=== PATIENT | female | born 1985 | race Caucasian/White ===

== ENCOUNTER 2021-08-15 14:18 | Emergency (ER) | payer OTHER ==
[2021-08-15 14:30] VITALS: BP 135/76
--- NOTE | 2021-08-15 14:33 | ED Physician Documentation ---
History of Present Illness - Stated complaint Stated Complaint: BODY PX - Chief complaint Chief Complaint: General - History obtained from History obtained from: Patient - History of Present Illness Timing: Chronic Quality: diffuse myofascial pains due to fibromas(?). On chronic pain meds and is awaiting surgical treatment. Moved here recently from [place]. Associated symptoms: She is trying to get PMD established through her new [place] State insurance. Review of Systems Constitutional: denies: Fever, Chills Nose: denies: Rhinorrhea / runny nose, Congestion Throat: denies: Sore throat Respiratory: denies: Cough PD PAST MEDICAL HISTORY - Past Medical History Musculoskeletal: Other (fibromas(?)) - Present Medications Home Medications: Ambulatory Orders Medication Instructions Recorded Confirmed Oxycodone HCl 15 mg PO Q6H PRN #25 tablet 08/15/21 - Allergies Allergies/Adverse Reactions: Allergies Allergy/AdvReac Type Severity Reaction Status Date / Time No Known Drug Allergies Allergy Verified 08/15/21 14:30 PD ED PE NORMAL - Vitals Vital signs reviewed: Yes - General General: Alert and oriented X 3, No acute distress, Well developed/nourished - Derm Derm: Normal color, Warm and dry Results - Vitals Vitals: Vital Signs - 24 hr 08/15/21 14:24 Temperature 36.6 C Heart Rate 94 Respiratory 16 Rate Blood Pressure 135/76 H O2 Saturation 99 Oxygen O2 Source Room air PD MEDICAL DECISION MAKING - ED course Complexity details: considered differential (She did not think she would be staying [place]. Her primary care and pain clinic in [place] was unable to prescribe refills for her. They suggested going to an ER. She is having persistent chronic myofascial pains.), d/w patient ED course: With [place] regulations, I did provide a short course prescription for pain medications. She will need to follow-up with the primary care for further medications to treat her pains. She was advised we would not be able to do refills subsequently through the ER. Departure - Departure Disposition: 01 Home, Self Care Clinical Impression: Muscle pain, myofascial Condition: Stable Record reviewed to determine appropriate education?: Yes Prescriptions: Oxycodone HCl 15 mg PO Q6H PRN #25 tablet PRN Reason: Pain Comments: [facility] [phone]. Call the providers listed on your insurance list. Dr. Perez as not been at this hospital for several years. We do not have the Jenny provider here at our facility. I see it listed potentially in [facility] which is not on [facility]. Look for some of the other providers on that list and try to obtain a primary care. You can also call the [facility] pain clinic and see what their timing is for new patients. You will also need to see what you can do working through your current provider back in [place] though certainly limited because of differing states etc. Discharge Date/Time: 08/15/21 15:09
== END 2021-08-15 15:09 | disposition home or self-care (01) ==
LOC: ED 14:18
DX: M79.18 Myalgia, other site (principal); G89.29 Other chronic pain
CPT/HCPCS: 99281; 99282

== ENCOUNTER 2022-01-08 02:16 | Emergency (ER) | payer SELFPAY ==
--- NOTE | 2022-01-08 02:19 | ED Physician Documentation ---
PD HPI LOWER EXT INJURY - Stated complaint Stated Complaint: L ANKLE PX - History obtained from History obtained from: Patient - History of Present Illness PD HPI LOW EXT INJURY LOCATION: Left, Ankle Type of injury: Twist Where injury occurred: Home Timing - onset: Enter time (16:00) Timing - details: Abrupt onset Pain level now: 2 Improved by: Rest Worsened by: Moving, Palpating Associated symptoms: Swelling. No: Weakness, Numbness - Additional information Additional information: At approximately 4 PM yesterday, patient was walking dogs when her left foot went into a hole in the ground, causing her left ankle to twist. She is able to partially weight-bear. She presents at this time due to pain and swelling steadily worsening and she is concerned it might be broken Review of Systems Musculoskeletal: reports: Joint pain, Joint swelling, Pain with weight bearing Neurologic: denies: Focal weakness, Numbness PD PAST MEDICAL HISTORY - Past Medical History Musculoskeletal: Other (fibromas(?)) - Present Medications Home Medications: Ambulatory Orders Medication Instructions Recorded Confirmed Oxycodone HCl 15 mg PO Q6H PRN #25 tablet 08/15/21 01/08/22 Atenolol [Tenormin] 500 mg PO BID 01/08/22 01/08/22 Gabapentin [Neurontin] 600 mg PO QID 01/08/22 01/08/22 oxyCODONE ER [OxyCONTIN] 10 mg PO BID 01/08/22 01/08/22 - Allergies Allergies/Adverse Reactions: Allergies Allergy/AdvReac Type Severity Reaction Status Date / Time No Known Drug Allergies Allergy Verified 01/08/22 02:24 PD ED PE NORMAL - Vitals Vital signs reviewed: Yes - General General: Alert and oriented X 3, No acute distress (at rest although obvious discomfort with palpation or movement involving left ankle), Well developed/nourished PD ED PE EXPANDED - Extremities Extremities: Tenderness (predominantly lateral aspect), Limited ROM, Swelling (predominantly lateral aspect), Left ankle, Pedal Pulses Present Results - Vitals Vitals: Oxygen O2 Source Room air - Rads (name of study) left ankle xrays Radiology: Prelim report reviewed, See rad report PD MEDICAL DECISION MAKING - ED course Complexity details: reviewed results, re-evaluated patient, considered differential, d/w patient ED course: Significant swelling, moderate TTP left ankle (lateral aspect) on exam, no fracture on xrays. Patient has her own LAURI wrap. I recommended crutches and air- cast splint, both of which she declines, and she wants to use her own LAURI wrap. She says she is "between insurances" (per patient), and wants to avoid any tests or treatment that isn't necessary. As there is no fracture on xrays, it is reasonable to forego splint and crutches. She says she will consider ordering the air-cast splint from [facility] and will borrow a friend's crutches. She declines pain medication, will use OTC medication. Work excuse provided. Departure - Departure Disposition: Home, Self Care Clinical Impression: Left ankle sprain Qualifiers: Encounter type: initial encounter Involved ligament of ankle: unspecified ligament Qualified Code(s): S93.402A - Sprain of unspecified ligament of left ankle, initial encounter Condition: Good Instructions: ED Sprain Ankle Follow-Up: Ez Storey MD [Provider Admit Priv/Credential] - Comments: The xrays do not show any broken or dislocated bones. Soft tissue injuries such as ankle sprains do not show on xrays. Rest for the next few days, minimizing weight-bearing and keeping the ankle elevated above the level of the heart when at home resting. Follow up with your primary care provider in 5-7 days for reevaluation of the injury. You can take tylenol or ibuprofen for pain as per label instructions Forms: Activity restrictions Discharge Date/Time: 01/08/22 03:28
[2022-01-08 03:25] VITALS: BP 110/60
--- NOTE | 2022-01-08 08:24 | XRAY Report ---
PROCEDURE: Ankle 3 View LT INDICATIONS: left ankle injury; swelling, tenderness TECHNIQUE: 3 views of the ankle were acquired. COMPARISON: None. FINDINGS: Bones: No fractures or dislocations. Ankle mortise is normally aligned. No suspicious bony lesions . Soft tissues: Swelling at the lateral malleolus. No tibiotalar joint effusion. Achilles tendon appe ars normal. IMPRESSION: No acute osseous abnormality. Swelling at the lateral malleolus. This report is concordant with the overnight preliminary interpretation. Reviewed by: Vinny Ellison MD on 01/08/2022 8:23 AM PST Approved by: Vinny Ellison MD on 01/08/2022 8:23 AM PST Station ID: [id number]
== END 2022-01-08 03:28 | disposition home or self-care (01) ==
LOC: ED 02:16
DX: S82.402A Unspecified fracture of shaft of left fibula, initial encounter for closed fracture (principal); X50.1XXA Overexertion from prolonged static or awkward postures, initial encounter; Y93.K1 Activity, walking an animal
CPT/HCPCS: 99282; 99283

== ENCOUNTER 2022-11-26 09:38 | Outpatient (CLI) | payer MEDICAID ==
[2022-11-26 11:49] LABS: ESTIMATED AVERAGE GLUCOSE 74 mg/dL (70-100); HEMOGLOBIN A1c% 4.2 % (4.27-6.07)
[2022-11-26 12:12] LABS: BASOPHILS % (AUTO) 0.4 %; EOSINOPHILS # (AUTO) 0.1 10^3/uL (0.0-0.7); EOSINOPHILS % (AUTO) 2.5 %; HCT - HEMATOCRIT 39.8 % (37.0-47.0); HGB - HEMOGLOBIN 12.5 g/dL (12.0-16.0); LYMPHOCYTES # (AUTO) 1.8 10^3/uL (1.5-3.5); LYMPHOCYTES % (AUTO) 34.2 %; MEAN CORPUSCULAR HGB CONC 31.4 g/dL (32.0-36.0); MEAN CORPUSCULAR VOLUME 95.7 fL (81.0-99.0); MEAN PLATELET VOLUME 11.7 fL (7.9-10.8); MONOCYTES # (AUTO) 0.4 10^3/uL (0.0-1.0); MONOCYTES % (AUTO) 7.9 %; NEUTROPHILS # (AUTO) 2.9 10^3/uL (1.5-6.6); NEUTROPHILS % (AUTO) 54.8 %; PLT - PLATELET COUNT 294 10^3/uL (130-450); RED BLOOD COUNT 4.16 10^6/uL (4.20-5.40); RED CELL DISTRIBUTION WIDTH 13.2 % (12.0-15.0); WHITE BLOOD COUNT 5.3 x10^3/uL (4.8-10.8)
[2022-11-26 12:34] LABS: HCG,QUALITATIVE BLOOD NEGATIVE
[2022-11-26 12:41] LABS: THYROID STIMULATING HORMONE 2.53 uIU/mL (0.34-5.60)
[2022-11-26 12:47] LABS: FERRITIN 64.4 ng/mL (11.0-306.8); PROLACTIN 22.84 ng/mL
== END 2022-11-26 09:39 | disposition home or self-care (01) ==
LOC: LAB.N 09:38
PROVIDERS: ATTEND Nurse Practitioner Family
DX: D64.9 Anemia, unspecified (principal); N92.6 Irregular menstruation, unspecified; E66.9 Obesity, unspecified; R53.83 Other fatigue
CPT/HCPCS: 36415; 82670; 82728; 83001; 83036; 83540; 84146; 84403; 84443; 84466; 84703; 85025

== ENCOUNTER 2023-06-10 21:43 | Emergency (ER) | payer MEDICAID ==
[2023-06-10 21:59] VITALS: BP 119/74; O2SAT 100
--- NOTE | 2023-06-10 22:53 | ED Physician Documentation ---
History of Present Illness - Stated complaint Stated Complaint: BILAT HIP PX - Chief complaint Chief Complaint: Ext Problem - History obtained from History obtained from: Patient - Additonal information Additional information: The pt comes to the ED with CC of bilateral hip swelling after a hike a few days ago. She states she was wearing a backpack with a hip belt, and she felt that it was pulling on her scars from prior surgery. Her hip joints hurt for a couple of days after the hike, but that has resolved. She states that now, her main concern is an area of "puffiness" just superior to each hip laterally, between the hip and her scar. She states she is supposed to go on a trip soon, and wants to make sure this is nothing serious. No erythema, fevers, chills, or pain with any position. No other complaints at this time. PD PAST MEDICAL HISTORY - Past Medical History Past Medical History: Yes Cardiovascular: Hypertension Respiratory: None Neuro: None Endocrine/Autoimmune: None GI: None [employer]: None : None HEENT: None Psych: None Musculoskeletal: None, Other Derm: None - Past Surgical History Past Surgical History: Yes General: Other - Present Medications Home Medications: Ambulatory Orders Medication Instructions Recorded Confirmed Oxycodone HCl 15 mg PO Q6H PRN #25 tablet 08/15/21 01/08/22 Atenolol [Tenormin] 500 mg PO BID 01/08/22 01/08/22 Gabapentin [Neurontin] 600 mg PO QID 01/08/22 01/08/22 - Allergies Allergies/Adverse Reactions: Allergies Allergy/AdvReac Type Severity Reaction Status Date / Time No Known Drug Allergies Allergy Verified 06/10/23 21:59 - Social History Does the pt smoke?: No Smoking Status: Never smoker Does the pt drink ETOH?: No Does the pt have substance abuse?: No - Immunizations Immunizations are current?: Yes - POLST Patient has POLST: No PD ED PE NORMAL - Vitals Vital signs reviewed: Yes - General General: Alert and oriented X 3, No acute distress - HEENT HEENT: Atraumatic, Moist mucous membranes - Neck Neck: Supple, no meningeal sign - Cardiac Cardiac: Strong equal pulses - Respiratory Respiratory: No respiratory distress - Abdomen Abdomen: Soft, Non tender, Non distended, Other (Low abdominal surgical scar running horizontally and wrapping laterally on both sides, superior to each hip) - Derm Derm: Normal color, Warm and dry, No rash, Other (Nonpitting, well-demarcated edema just superior to each hip, about 5 cm diameter. No induration, fluctuance, or erythema. No mass.) - Extremities Extremities: No deformity, Normal ROM s pain, No edema - Neuro Neuro: Alert and oriented X 3 - Psych Psych: Normal mood, Normal affect Results - Vitals Vitals: Oxygen O2 Source Room air PD Medical Decision Making - ED course Complexity details: considered differential, d/w patient ED course: I d/w pt that I do not know why she has areas of edema above her hips. There is no indication of infection, and her hip pain has resolved. There is no tenderness over the trochanteric bursae, and the edema is definitely superior to the hips. Being that it is just inferior to the scars, it is possible that while the pt was wearing her backpack, it caused traction on the scar tissue, resulting in soft tissue trauma. In the absence of contusion, though, it is hard to say. The pt has no findings to indicate DVT, and the areas are very well-demarcated, with no edema outside the noted 5 cm diameter areas. Her abdominal exam is benign, and she has no abdominal or systemic complaints. At this point, there is no work-up that will be helpful, and the pt is stable for d/c. I have d/w her that I suspect this will just blow over on its own, w hatever has caused it. Departure - Departure Disposition: 01 Home, Self Care Clinical Impression: Soft tissue swelling Condition: Stable Instructions: ED Edema Legs Bilateral Comments: Your areas of swelling are not really over your bursae or the actual hip joints themselves and your it joint pain has gone away. Patient of infection and at this point, no evidence of an emergent condition. The swollen areas feel like puffy tissue but they do not feel like fluid collections within the tissue. You can wear your lipedema pants to help redistribute some of the swelling. You may also take ibuprofen as needed. The swelling is expected to resolve on its own in the coming days to next week or so. Please follow-up with your primary doctor as needed. Forms: PCP List Discharge Date/Time: 06/10/23 23:00
== END 2023-06-10 23:00 | disposition home or self-care (01) ==
LOC: ED 21:43
DX: M79.9 Soft tissue disorder, unspecified (principal); M25.551 Pain in right hip; M25.552 Pain in left hip
CPT/HCPCS: 99282; 99283

== ENCOUNTER 2023-09-24 08:00 | Outpatient (CLI) | payer MEDICAID ==
[2023-09-24 20:52] LABS: BASOPHILS % (AUTO) 0.3 %; EOSINOPHILS # (AUTO) 0.1 10^3/uL (0.0-0.7); EOSINOPHILS % (AUTO) 1.5 %; HCT - HEMATOCRIT 36.5 % (37.0-47.0); HGB - HEMOGLOBIN 11.8 g/dL (12.0-16.0); LYMPHOCYTES # (AUTO) 2.1 10^3/uL (1.5-3.5); LYMPHOCYTES % (AUTO) 34.4 %; MEAN CORPUSCULAR HEMOGLOBIN 30.6 pg (27.0-31.0); MEAN CORPUSCULAR HGB CONC 32.3 g/dL (32.0-36.0); MEAN CORPUSCULAR VOLUME 94.6 fL (81.0-99.0); MEAN PLATELET VOLUME 12.2 fL (7.9-10.8); MONOCYTES # (AUTO) 0.4 10^3/uL (0.0-1.0); MONOCYTES % (AUTO) 5.7 %; NEUTROPHILS # (AUTO) 3.6 10^3/uL (1.5-6.6); NEUTROPHILS % (AUTO) 57.9 %; PLT - PLATELET COUNT 287 10^3/uL (130-450); RED BLOOD COUNT 3.86 10^6/uL (4.20-5.40); RED CELL DISTRIBUTION WIDTH 12.3 % (12.0-15.0); WHITE BLOOD COUNT 6.2 x10^3/uL (4.8-10.8)
[2023-09-24 21:05] LABS: ALBUMIN/GLOBULIN RATIO 1.3 (1.0-2.2); BILIRUBIN,TOTAL 0.7 mg/dL (0.2-1.0); CALCIUM 9.1 mg/dL (8.5-10.3); CREATININE 0.7 mg/dL (0.6-1.3); POTASSIUM 3.7 mmol/L (3.5-4.5)
[2023-09-24 21:19] LABS: THYROID STIMULATING HORMONE 0.31 uIU/mL (0.34-5.60)
== END 2023-09-24 23:59 | disposition home or self-care (01) ==
LOC: LAB.N 08:00
PROVIDERS: ATTEND Physician Assistant
DX: N92.6 Irregular menstruation, unspecified (principal)
CPT/HCPCS: 36415; 80053; 84443; 85025